=== PATIENT | male | born 1985 | race Caucasian/White ===

== ENCOUNTER 2017-01-20 23:46 | Emergency (ER) | payer MEDICAID, OTHER ==
[~2017-01-20] VITALS: Ht 170.2 cm; Wt 95.0 kg
[2017-01-20 23:52] VITALS: BP 132/85; PULSE 87; RESP 18; TEMP 99; O2SAT 99
[2017-01-21] MEDS ORDERED: ACETAMINOPHEN/HYDROcodone 325 MG/5 MG TAB PO ONE (00:15)
[2017-01-21] MEDS ORDERED: LIDOCAINE HCL 1% 50 ML VIAL INFIL ONE (00:15)
[2017-01-21] MEDS ORDERED: FLUO10CA5 PO (00:35)
--- NOTE | 2017-01-21 01:02 | PD ---
HPI Chief Complaint: Skin Problem Time Seen by Provider: 00:01 Travel History International Travel<30 days: No Contact w/Intl Traveler<30days: No Traveled to known affect area: No History of Present Illness HPI Patient is a 31-year-old male comes in complaining of a cyst on his tailbone. He says he has had it for the past few days. He tried to drain it at home, but only got blood out. He says it still very painful. He has not had any fever or chills. He has not noticed any draining from it. He has not taken anything for pain. 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, cyst removal from neck ) Social History Alcohol Use: No Tobacco Use: Yes (1 ppd) Substance Use: No Allergies-Medications (Allergen,Severity, Reaction): Coded Allergies: Gabapentin (Verified Allergy, Intermediate, hives, 01/21/17) Reported Meds & Prescriptions Reported Meds & Active Scripts Active Reported Fluoxetine (Fluoxetine HCl) 10 Mg Cap 10 Mg PO BID Review of Systems Except as stated in HPI: all other systems reviewed are Neg General / Constitutional: No: Fever, Chills HENT: No: Headaches, Lightheadedness Cardiovascular: No: Chest Pain or Discomfort Respiratory: No: Shortness of Breath Gastrointestinal: No: Nausea, Vomiting, Constipation Musculoskeletal: No: Weakness Skin: Positive Lesions Neurologic: No: Weakness, Dizziness Physical Exam Narrative GENERAL: Awake and alert, in no acute distress. SKIN: Focused skin assessment warm/dry. 3 cm fluctuant mass just above the gluteal cleft, no extension into the anus. Slight erythema over the abscess. HEAD: Atraumatic. Normocephalic. EYES: Pupils equal and round. No scleral icterus. ENT: No nasal bleeding or discharge. Mucous membranes pink and moist. CARDIOVASCULAR: Regular rate and rhythm. No murmur appreciated. RESPIRATORY: No accessory muscle use. Clear to auscultation. Breath sounds equal bilaterally. GASTROINTESTINAL: Abdomen soft, non-tender, nondistended. Hepatic and splenic margins not palpable. MUSCULOSKELETAL: No obvious deformities. No clubbing. No cyanosis. No edema. NEUROLOGICAL: Awake and alert. No obvious cranial nerve deficits. Motor grossly within normal limits. Normal speech. PSYCHIATRIC: Appropriate mood and affect; insight and judgment normal. Data Data Last Documented VS Vital Signs Date Time Temp Pulse Resp B/P Pulse Ox O2 Delivery O2 Flow Rate FiO2 01/20/17 23:52 99.0 87 18 132/85 99 Orders Acetamin-Hydrocod 325-5 Mg ([place] 5-325 (01/21/17 00:15) Lidocaine 1% Inj (50 Ml) (Xylocaine 1% I (01/21/17 00:15) [facility] Medical Decision Making Medical Screen Exam Complete: Yes Emergency Medical Condition: Yes Differential Diagnosis Abscess versus cellulitis versus pilonidal cyst Narrative Course Patient is a 31-year-old male comes in complaining of a cyst of of his tailbone. Exam shows a 3 cm abscess just above the gluteal cleft. Patient given Lortab for pain. I&D performed with pus expressed. Patient will be discharged with Keflex and Bactrim. Advised to keep the area clean and dry. Advised to follow-up with a primary care doctor. Advised to return to the ED as needed for any worsening symptoms. Procedures Procedure Narrative INCISION AND DRAINAGE OF ABSCESS: The area was prepped and was sterilely draped. A subcutaneous wheal of 1 % Xylocaine with a total number 4 mL was used to anesthetize the area properly. A number 11 scalpel was used to make a 1 -cm incision across the area of the abscess. The abscess was drained, complex loculations were broken down, and irrigated with normal saline. Sterile dressing applied. Diagnosis Primary Impression: Abscess Patient Instructions: Abscess (ED), Abscess Incision and Drainage (ED), General Instructions Additional Instructions: Follow up with a primary care doctor. Take all of your antibiotics. Return to the ED as needed for any worsening symptoms. Scripts Cephalexin (Keflex)500 Mg Cen205 Mg PO Q6H 7 Days Ref 0 Prov:Irais Gustafson MD 01/21/17 Sulfamethoxazole-Trimethoprim (Bactrim DS)800-160 Mg Tab1 Tab PO BID #14 TAB Ref 0 Prov:Irais Gustafson MD 01/21/17 Disposition: 01 DISCHARGE HOME Condition: Stable Irais Gustafson MD January 21, 2017 01:02
[2017-01-21] MEDS ORDERED: CEPH-460 PO (01:07)
[2017-01-21] MEDS ORDERED: BACT800T5 PO (01:07)
[2017-01-21 01:16] VITALS: RESP 18
[2017-01-21 01:19] VITALS: BP 139/79; TEMP 98.5
== END 2017-01-21 01:24 | disposition home or self-care (01) ==
LOC: PHED 23:46
DX: L02.31 Cutaneous abscess of buttock (principal); M19.90 Unspecified osteoarthritis, unspecified site; F41.9 Anxiety disorder, unspecified; F32.9 Major depressive disorder, single episode, unspecified; K21.9 Gastro-esophageal reflux disease without esophagitis; F43.10 Post-traumatic stress disorder, unspecified; F17.200 Nicotine dependence, unspecified, uncomplicated
CPT/HCPCS: 10060